=== PATIENT | male | born 1995 | race Caucasian/White ===

== ENCOUNTER 2016-07-28 08:25 | Emergency (ER) | payer BC ==
[~2016-07-28] VITALS: Ht 165.1 cm; Wt 67.4 kg
[~2016-07-28 08:25] MED LIST: AMOX1TAB67; BEN25 PO; IBUP-725
[2016-07-28 08:26] VITALS: Ht 165.1 cm; Wt 67.4 kg
[2016-07-28] MEDS ORDERED: KETOROLAC 30 MG INJ IV STA (08:50)
[2016-07-28] MEDS ORDERED: SOD CHLORIDE 0.9% 1,000 ML IV STA (08:50)
[2016-07-28] MEDS ORDERED: METOCLOPRAMIDE 10 MG INJ IV STA (08:50)
[2016-07-28] MEDS ORDERED: DIPHENHYDRAMINE 50 MG INJ IV STA (08:50)
--- NOTE | 2016-07-28 10:07 | ERD ---
ER Documentation Chief Complaint Date/Time DATE: 07/28/16 TIME: 09:59 Chief Complaint vickers since yesterday HPI Patient is a 21-year-old male who presents to the ED with headache that started gradually yesterday. He says that the pain came on slowly and has increased until today. He does not state that this is not "the worst pain of his life" he has taken ibuprofen 800 for his symptoms which has minimally helped with his headache. He states that he has had these headaches in the past and used to suffer from migraines. He also complains of photophobia, phonophobia, nausea, nonbloody nonbilious vomiting. He states that the pain is located on the left side of his head. Denies any trauma or injury. Denies dizziness, neck pain or neck stiffness. Denies chest pain, cough, shortness of breath or difficulty breathing. Denies abdominal pain, diarrhea or constipation. ROS All systems reviewed and are negative except as per history of present illness. Medications Home Meds Active Scripts Acetaminophen/Aspirin/Caffeine* (Excedrin*) 1 Tab Tab, 1 TAB PO BID for 30 Days , TAB Prov:ANITA AGUILAR PA-C 07/28/16 Ondansetron Hcl* (Zofran*) 4 Mg Tablet, 4 MG PO Q6H for NAUSEA AND/OR VOMITING, #30 TAB Prov:ANITA AGUILAR PA-C 07/28/16 Diphenhydramine Hcl* (Benadryl*) 25 Mg Cap, 25 MG PO Q6, #20 CAP Prov:DANELLE FRANCES PA-C 11/17/15 Reported Medications Amoxicillin-Clavulanate K* (Augmentin*) 500 Mg Tab 10/12/09 Ibuprofen (Motrin) 400 Mg Tablet 10/12/09 Allergies Allergies: Coded Allergies: No Known Allergies (Verified Allergy, Mild, 07/28/16) PMhx/Soc Medical and Surgical Hx: pt denies Medical Hx, pt denies Surgical Hx History of Surgery: No Anesthesia Reaction: No Hx Neurological Disorder: No Hx Respiratory Disorders: No Hx Cardiac Disorders: No Hx Psychiatric Problems: No Hx Miscellaneous Medical Probl: No Hx Alcohol Use: Yes (socially) Hx Substance Use: No Hx Tobacco Use: No Smoking Status: Never smoker Physical Exam Vitals Vital Signs Date Time Temp Pulse Resp B/P Pulse Ox O2 Delivery O2 Flow Rate FiO2 07/28/16 08:26 97.8 64 18 122/75 99 Physical Exam GENERAL: Well-developed, well-nourished male. Appears in no acute distress. HEAD: Normocephalic, atraumatic. EYES: Pupils are equally reactive bilaterally. EOMs grossly intact. No conjunctival erythema. ENT: Moist mucous membranes. No uvula deviation. No kissing tonsils. No exudates. No rhinorrhea. No nasal stuffiness. NECK: Supple. No lymphadenopathy or thyromegaly. No meningismus. negative kernig. negative brudinski. LUNG: Clear to auscultation bilaterally. No rhonchi, wheezing, rales or coarse breath sounds. HEART: Regular rate and rhythm. No murmurs, rubs or gallops. ABDOMEN: No scars, ecchymosis or rashes noted. Soft, nontender, and nondistended. Positive bowel sounds in all four quadrants. No rebound tenderness , no guarding. (-) McBurneys point tenderness. No CVA tenderness. BACK: No midline tenderness. Extremities: Equal pulses bilaterally. No peripheral clubbing, cyanosis or edema. No unilateral leg swelling. NEUROLOGIC: Alert and oriented. Moving all four extremities. 5/5 strength in all extremities. Normal speech. Steady gait. negative romberg. no ataxis. cn 2 through 12 intact SKIN: Normal color. Warm and dry. No rashes or lesions. Capillary refill < 2 seconds Results 24 hrs Current Medications Medications (Trade) Dose Ordered Sig/Sherrie Route PRN Reason Start Time Stop Time Status Last Admin Dose Admin Sodium Chloride (NS) 1,000 ml @ 1,000 mls/hr Q1H STAT IV 07/28/16 08:50 07/28/16 09:49 DC 07/28/16 09:05 Metoclopramide HCl (Reglan) 10 mg ONCE STAT IV 07/28/16 08:50 07/28/16 08:52 DC 07/28/16 09:05 Ketorolac Tromethamine (Toradol) 30 mg ONCE STAT IV 07/28/16 08:50 07/28/16 08:52 DC 07/28/16 09:05 Diphenhydramine HCl (Benadryl) 25 mg ONCE STAT IV 07/28/16 08:50 07/28/16 08:52 DC 07/28/16 09:05 Procedures/MDM ER COURSE: I kept the patient and/or family informed of laboratory and diagnostic imaging results throughout the emergency room course. MEDICATIONS IV fluids, Benadryl, Toradol, Reglan. Tolerated well with no adverse reaction and stated improvement in symptoms. MEDICAL DECISION MAKING: This is a 21-year-old male who presents with headache 2 days. Vital signs were reviewed. Patient is afebrile. Patient is not hypoxic. Patient is not toxic. Patient likely has headache of unknown etiology. I do not think a CT scan was warranted at this time, risk versus benefits were discussed with patient. He has had these headaches in the past and he does not state that this is the worst headache of his life. Patient does have a history of migraines. His cranial examination was within normal limits and he was neurovascularly intact. I reexamined patient after medications were given, patient stated improvement in symptoms and was ready to be discharged home. Low suspicion for intracranial hemorrhage, meningitis, intracranial mass, concussion, temporal arteritis, stroke, elevated intracranial pressure, seizure. DISCHARGE: At this time, patient is stable for discharge and outpatient management with no new complaints during the ER course. Patient was sent home with [facility]. Patient will be discharged home with instructions to recheck for new or worsening symptoms such as fever, nausea, weakness, LOC and to follow up with primary care in the next 1-2 days. Patient was advised to return to the ER for any new or worsening symptoms. Plan was discussed and patient and/or family understands and agrees. Home instructions were given. Departure Diagnosis: Primary Impression: Headache Headache type: unspecified Headache chronicity pattern: unspecified pattern Intractability: not intractable Qualified Code: R51 - Nonintractable headache, unspecified chronicity pattern, unspecified headache type Condition: Stable ANITA AGUILAR PA-C Jul 28, 2016 10:07
[2016-07-28] MEDS ORDERED: FIORICET PO (10:36)
[2016-07-28] MEDS ORDERED: ONDA4TAB8 PO (10:36)
[2016-07-28] MEDS ORDERED: EXCED PO (10:37)
[2016-07-28 10:50] VITALS: BP 111/59; PULSE 62; RESP 18; TEMP 98.3
== END 2016-07-28 10:50 | disposition home or self-care (01) ==
LOC: FTE 08:25
DX: R51 Headache (principal); R11.2 Nausea with vomiting, unspecified
CPT/HCPCS: 96361; 96374; 96375; 99284; J1200; J1885; J2765; J7030

== ENCOUNTER 2016-11-09 21:00 | Emergency (ER) | payer BC ==
[~2016-11-09] VITALS: Ht 185.4 cm; Wt 69.0 kg
[~2016-11-09 21:00] MED LIST changes: +EXCED PO; +ONDA4TAB8 PO
[2016-11-09 21:03] VITALS: Ht 185.4 cm; Wt 69.0 kg
[2016-11-09] MEDS ORDERED: ONDANSETRON (ODT) 4 MG TAB ODT STA (22:12)
--- NOTE | 2016-11-09 22:15 | ERD ---
ER Documentation Chief Complaint Date/Time DATE: 11/09/16 TIME: 22:13 Chief Complaint LT SIDE TEMPORAL CARRASCO +VOMITING TODAY SINCE 3. EXCEDRIN INEFFECTIVE HPI 21-year-old male presents to emergency department for complaint of left-sided headache with vomiting that started today, patient took Excedrin with only mild relief. Patient discussed the pain as throbbing pain, succession scale, accompanied with nausea and vomiting. Patient has history of migraine headaches that he has been having ever since he was 12 years old. ROS All systems reviewed and are negative except as per history of present illness. Medications Home Meds Active Scripts Acetaminophen/Aspirin/Caffeine* (Excedrin*) 1 Tab Tab, 1 TAB PO BID for 30 Days , TAB Prov:ANITA AGUILAR PA-C 07/28/16 Ondansetron Hcl* (Zofran*) 4 Mg Tablet, 4 MG PO Q6H for NAUSEA AND/OR VOMITING, #30 TAB Prov:ANITA AGUILAR PA-C 07/28/16 Diphenhydramine Hcl* (Benadryl*) 25 Mg Cap, 25 MG PO Q6, #20 CAP Prov:DANELLE FRANCES PA-C 11/17/15 Reported Medications Amoxicillin-Clavulanate K* (Augmentin*) 500 Mg Tab 10/12/09 Ibuprofen (Motrin) 400 Mg Tablet 10/12/09 Allergies Allergies: Coded Allergies: No Known Allergies (Verified Allergy, Mild, 07/28/16) PMhx/Soc Medical and Surgical Hx: pt denies Medical Hx, pt denies Surgical Hx History of Surgery: No Anesthesia Reaction: No Hx Neurological Disorder: No Hx Respiratory Disorders: No Hx Cardiac Disorders: No Hx Psychiatric Problems: No Hx Miscellaneous Medical Probl: No Hx Alcohol Use: Yes (socially) Hx Substance Use: No Hx Tobacco Use: No Smoking Status: Never smoker FmHx Family History: No coronary disease, No diabetes, No other Physical Exam Vitals Vital Signs Date Time Temp Pulse Resp B/P Pulse Ox O2 Delivery O2 Flow Rate FiO2 11/09/16 21:03 97.6 79 18 136/82 98 Physical Exam GENERAL: The patient is well developed and appropriate for usual state of health, in no apparent distress. CHEST: Clear to auscultation bilaterally. There are no rales, wheezes or rhonchi. HEART: Regular rate and rhythm. No murmurs, clicks, rubs or gallops. No S3 or S4. ABDOMEN: Soft, nontender and nondistended. Good bowel sounds. No rebound or guarding. No gross peritonitis. No gross organomegaly or masses. No Mcneil sign or McBurney point tenderness. BACK: No midline or flank tenderness. EXTREMITIES: Equal pulses bilaterally. There is no peripheral clubbing, cyanosis or edema. No focal swelling or erythema. Full range of motion. Grossly neurovascularly intact. NEURO: Alert and oriented. Cranial nerves 2-12 intact. Motor strength in all 4 extremities with 5/5 strength. Sensation grossly intact. Normal speech and gait. Negative Romberg and SKIN: There is no apparent rash or petechia. The skin is warm and dry. HEMATOLOGIC AND LYMPHATIC: There is no evidence of excessive bruising or lymphedema. No gross cervical, axillary, or inguinal lymphadenopathy. Results 24 hrs Current Medications Medications (Trade) Dose Ordered Sig/Sherrie Route PRN Reason Start Time Stop Time Status Last Admin Dose Admin Ondansetron HCl (Zofran Odt) 4 mg ONCE STAT ODT 11/09/16 22:12 11/09/16 22:15 DC Acetam/Butalbital/ Caffeine/Codeine (Fioricet/ Codeine) 1 cap ONCE ONCE PO 11/09/16 22:30 11/09/16 22:31 DC Patient was given Zofran here in the emergency department. After treatment, patient was able to tolerate po fluids here in the emergency department without any vomiting. There is no signs and symptoms of dehydration. Patient was given medication for pain here in emergency department, after treatment, patient verbalized feeling much better. Patient's pain is improved. PROCEDURE: CT Brain without contrast. CLINICAL INDICATION: Headaches TECHNIQUE: A CT of the brain was performed on a [employer] 64-slice CT scanner utilizing axial imaging from the skull base through the vertex without IV contrast. Multiplanar reformatted images were made. Images were reviewed on a PACS workstation. The CTDIvol is 44.52 mGy and the DLP is 720.23 mGycm. One of the following 3 dose reduction techniques were used: Automated exposure control; adjustment of the mA and/or kV according to patient size; or use of iterative reconstruction technique. COMPARISON: None available FINDINGS: There is no intracranial hemorrhage, mass effect, or midline shift. No extra- axial fluid collection is seen. The ventricles and sulci are normal in size and configuration. The density of the brain is normal, and the fisher white matter differentiation appears well-preserved. The visualized scalp and calvarium are normal. The bilateral orbits are normal. The bilateral paranasal sinuses are remarkable for mild chronic sphenoid sinus disease. The bilateral mastoid air cells and middle ear cavities are clear. IMPRESSION: 1. No evidence of acute intracranial hemorrhage, infarcts, or acute intracranial pathology. 2. Normal noncontrast brain CT 3. Mild chronic sphenoid sinus disease. RPTAT: HDC .Anna Ann MD, MD Date Time Electronically viewed and signed by .Anna Ann MD, MD on 11/09/2016 22: 42 .C/ CC: SAADIA GARZA SENIOR PATIENT ACCOUNT REPRESENTATIVE Procedures/MDM Medical Decision Making: Patient symptoms are consistent with migraine headache , possible tension headache. There is low suspicion for neurological emergencies at this time since patients neurologic exam is normal. Patient did not have any altered level consciousness, vomiting, changes in balance or memory and did not have any head injury. Patients CT scan of the head does not show any neurological emergencies at this time. Patient also has chronic sphenoid sinusitis is seen in the CT scan of the brain, we'll treat this one with Flonase and Augmentin, Zyrtec. No symptoms of any sepsis at this time. Patient appears well and is hemodynamically stable. Rx: Fioricet with codeine, Zofran, Augmentin, Flonase, Zyrtec Dispostion: Home. Stable Departure Diagnosis: Primary Impression: Headache Headache type: unspecified Headache chronicity pattern: acute headache Intractability: not intractable Qualified Code: R51 - Acute nonintractable headache, unspecified headache type Additional Impression: Sinusitis chronic, sphenoidal Condition: Stable Patient Instructions: Acute Sinusitis, Self-Care for Headaches SAADIA GARZA NP Nov 09, 2016 22:15
[2016-11-09] MEDS ORDERED: ACET/BUTAL/CAFF/CODEINE CAP PO ONE (22:30)
--- NOTE | 2016-11-09 22:42 | RADRPT ---
PROCEDURE: CT Brain without contrast. CLINICAL INDICATION: Headaches TECHNIQUE: A CT of the brain was performed on a [employer] 64-slice CT scanner utilizing axial imaging from the skull base through the vertex without IV contrast. Multiplanar reformatted images were made. Images were reviewed on a PACS workstation. The CTDIvol is 44.52 mGy and the DLP is 72 0.23 mGycm. One of the following 3 dose reduction techniques were used: Automated exposure control; adjustment of the mA and/or kV according to patient size; or use of iterative reconstruction technique. COMPARISON: None available FINDINGS: There is no intracranial hemorrhage, mass effect, or midline shift. No extra-axial fluid collection is seen. The ventricles and sulci are normal in size and configuration. The density of the brain is normal, and the fisher white matter differentiation appears well-preserved. The visualized scalp and calvarium are normal. The bilateral orbits are normal. The bilateral para nasal sinuses are remarkable for mild chronic sphenoid sinus disease. The bilateral mastoid air nessa ls and middle ear cavities are clear. IMPRESSION: 1. No evidence of acute intracranial hemorrhage, infarcts, or acute intracranial pathology. 2. Normal noncontrast brain CT 3. Mild chronic sphenoid sinus disease. RPTAT: HDC .Anna Ann MD, MD Date Time Electronically viewed and signed by .Anna Ann MD, MD on 11/09/2016 22:42 .C/
[2016-11-09] MEDS ORDERED: FLUT9.9S NASAL (22:51)
[2016-11-09] MEDS ORDERED: ONDA4TAB14 PO (22:51)
[2016-11-09] MEDS ORDERED: CETI10CA PO (22:51)
[2016-11-09] MEDS ORDERED: BUTA1CAP39 PO (22:51)
[2016-11-09] MEDS ORDERED: AMOX1TAB10 PO (22:51)
[2016-11-09 23:32] VITALS: BP 130/81; RESP 17; TEMP 97.9
== END 2016-11-09 23:33 | disposition home or self-care (01) ==
LOC: FTE 21:00
DX: R51 Headache (principal); J32.3 Chronic sphenoidal sinusitis; R11.2 Nausea with vomiting, unspecified
CPT/HCPCS: 70450; 99284; Z7610